=== PATIENT | female | born 1970 | race Caucasian/White ===

== ENCOUNTER 2017-03-18 17:31 | Emergency (ER) | payer BC ==
[2017-03-18] MEDS: LOSARTAN 50 MG TAB PO (22:05)
[2017-03-18] MEDS: HYDROCODONE/APAP (5/325) TAB PO (22:10)
== END 2017-03-18 22:12 | disposition home or self-care (01) ==
LOC: FTE 17:31
DX: S60.221A Contusion of right hand, initial encounter (principal); I10 Essential (primary) hypertension; J45.909 Unspecified asthma, uncomplicated; F17.210 Nicotine dependence, cigarettes, uncomplicated; W01.0XXA Fall on same level from slipping, tripping and stumbling without subsequent striking against object, initial encounter; Y92.9 Unspecified place or not applicable
CPT/HCPCS: 29125; 73080-RT; 73120; 99283-25

== ENCOUNTER 2017-04-24 20:36 | Emergency (ER) | payer BC ==
[2017-04-24] MEDS: FAMOTIDINE 20 MG TAB PO (22:09)
[2017-04-24] MEDS: DEXAMETHASONE 10 MG/ML 1 ML INJ IM (22:09)
[2017-04-24] MEDS: DIPHENHYDRAMINE 50 MG INJ IM (22:09)
== END 2017-04-24 23:24 | disposition home or self-care (01) ==
LOC: FTE 20:36
DX: L30.9 Dermatitis, unspecified (principal); J45.909 Unspecified asthma, uncomplicated; I10 Essential (primary) hypertension; Z87.891 Personal history of nicotine dependence
CPT/HCPCS: 96372; 99284-25

== ENCOUNTER 2017-08-16 22:14 | Emergency (ER) | payer SELFPAY, BC | END 2017-08-17 00:38 | disposition left against medical advice (07) | LOC: FTE 08-17 00:38 | DX: Z53.21 Procedure and treatment not carried out due to patient leaving prior to being seen by health care provider (principal) ==

== ENCOUNTER 2018-10-14 00:56 | Emergency (ER) | payer BC ==
[2018-10-14] MEDS: CLINDAMYCIN 300 MG CAP PO (02:42)
== END 2018-10-14 02:55 | disposition home or self-care (01) ==
LOC: E/R 00:56
DX: L03.114 Cellulitis of left upper limb (principal); I10 Essential (primary) hypertension; J45.909 Unspecified asthma, uncomplicated; Z85.9 Personal history of malignant neoplasm, unspecified
CPT/HCPCS: 99283; Z7502